=== PATIENT | female | born 1960 | race Caucasian/White ===

== ENCOUNTER → 2022-03-27 | Day surgery (SDC) | payer MEDICARE ==
[~2022-03-27] VITALS: Ht 154.9 cm; Wt 98.9 kg
[~2022-03-27] MED LIST: ABILIFY15 MG PO; AMLODIPINE-BEN1 EAC2 PO; ASPIRIN ADULT L81 M1 PO; BUPROPION XL300 MG PO; CARAFATE1 G1 PO; GLIPIZIDE5 MG PO; LASIX20 MG PO; LEVOTHYROXINE100 MC2 PO; METFORMIN HYD1000 MG PO; MIRTAZAPINE30 M1 PO; PREVACID15 MG PO; PROVENTIL HFA6.7 GM INH; SIMVASTATIN20 MG PO; XANAX0.25 MG PO
[2022-03-27 06:54] VITALS: BP 138/84
[2022-03-27 08:01] VITALS: BP 165/104
[2022-03-27 08:16] VITALS: BP 174/112
[2022-03-27 08:31] VITALS: BP 168/87
== END | disposition home or self-care (01) ==
LOC: SDC 03-24 08:45
PROVIDERS: ATTEND Surgery
DX: Z12.11 Encounter for screening for malignant neoplasm of colon (principal); K63.5 Polyp of colon; K21.9 Gastro-esophageal reflux disease without esophagitis; K29.70 Gastritis, unspecified, without bleeding; Z86.010 Personal history of colon polyps; I10 Essential (primary) hypertension; E11.9 Type 2 diabetes mellitus without complications; F31.9 Bipolar disorder, unspecified; J44.9 Chronic obstructive pulmonary disease, unspecified; F17.210 Nicotine dependence, cigarettes, uncomplicated; Z88.0 Allergy status to penicillin; Z88.8 Allergy status to other drugs, medicaments and biological substances; Z79.899 Other long term (current) drug therapy

== ENCOUNTER → 2024-03-09 | Outpatient (CLI) | payer BC, OTHER ==
[~2024-03-09] MED LIST changes: +LASIX40 MG PO; +LEVOTHYROXINE100 MC1 PO; +OXYBUTYNIN5 MG PO; +TRELEGY ELLIPT1 EACH INH
== END | disposition home or self-care (01) ==
LOC: US 13:52
PROVIDERS: ATTEND Family Medicine
DX: N18.9 Chronic kidney disease, unspecified (principal)

== ENCOUNTER → 2024-04-12 | Outpatient (CLI) | payer BC, OTHER ==
[2024-04-12 15:33] LABS: BILIRUBIN Negative (Negative); BLOOD Trace-Intact (Negative); CLARITY Cloudy (Clear); COLOR Yellow (Yellow); GLUCOSE 3+ (Negative); KETONE Negative (Negative); LEUKO ESTERASE 3+ (Negative); NITRITE Negative (Negative); PH 5.5 (4.5-8.0); SPECIFIC GRAVITY 1.015 (1.001-1.030); UROBILINOGEN 0.2 E.U./dl (0.0-1.0)
[2024-04-12 15:58] LABS: WBC TNTC wbc/hpf (0-5)
== END | disposition home or self-care (01) ==
LOC: LAB 15:08
PROVIDERS: Internal Medicine Nephrology; ATTEND Nurse Practitioner Family
DX: N30.00 Acute cystitis without hematuria (principal); D50.9 Iron deficiency anemia, unspecified

== ENCOUNTER → 2024-08-08 | Outpatient (CLI) | payer BC, MEDICARE | END | disposition home or self-care (01) | LOC: CT 13:00 | PROVIDERS: ATTEND Family Medicine | DX: Z12.31 Encounter for screening mammogram for malignant neoplasm of breast (principal); Z12.2 Encounter for screening for malignant neoplasm of respiratory organs; R91.8 Other nonspecific abnormal finding of lung field; Z87.891 Personal history of nicotine dependence ==

== ENCOUNTER → 2024-09-19 | Outpatient (CLI) | payer OTHER ==
[~2024-09-19] MED LIST changes: +IOHEXOL 300 MG/ML 100 ML VIAL IV ONE; +IOHEXOL 300 MG/ML 100 ML VIAL ONE
== END | disposition home or self-care (01) ==
LOC: CT 03:41
PROVIDERS: ATTEND Nurse Practitioner Family
DX: R10.9 Unspecified abdominal pain (principal); R63.4 Abnormal weight loss; I70.8 Atherosclerosis of other arteries

== ENCOUNTER → 2024-11-15 | Outpatient (CLI) | payer BC, OTHER ==
[~2024-11-15] MED LIST changes: -IOHEXOL 300 MG/ML 100 ML VIAL IV ONE; -IOHEXOL 300 MG/ML 100 ML VIAL ONE
[2024-11-16 13:07] LABS: t-TRANSGLUTAMINASE (tTG) IGA <2 U/mL (0-3)
== END | disposition home or self-care (01) ==
LOC: LAB 11:23
PROVIDERS: Student in an Organized Health Care Education/Training Program; ATTEND Family Medicine
DX: K90.9 Intestinal malabsorption, unspecified (principal)

== ENCOUNTER → 2025-01-20 | Outpatient (CLI) | payer BC, OTHER | END | disposition home or self-care (01) | LOC: RAD 01:30 | PROVIDERS: ATTEND Family Medicine | DX: Z13.820 Encounter for screening for osteoporosis (principal); M85.89 Other specified disorders of bone density and structure, multiple sites; Z78.0 Asymptomatic menopausal state ==

== ENCOUNTER 2025-03-01 20:47 | Emergency (ER) | payer BC, OTHER ==
[~2025-03-01] VITALS: Ht 154.9 cm; Wt 83.9 kg
[2025-03-01] MEDS ORDERED: PREDNISONE20 M1 PO (21:49)
== END 2025-03-01 22:38 | disposition home or self-care (01) ==
LOC: ED 20:47
DX: S66.911A Strain of unspecified muscle, fascia and tendon at wrist and hand level, right hand, initial encounter (principal); I10 Essential (primary) hypertension; E11.9 Type 2 diabetes mellitus without complications; J44.9 Chronic obstructive pulmonary disease, unspecified; K21.9 Gastro-esophageal reflux disease without esophagitis; F31.9 Bipolar disorder, unspecified; F12.90 Cannabis use, unspecified, uncomplicated; F17.200 Nicotine dependence, unspecified, uncomplicated; Z79.82 Long term (current) use of aspirin; Z79.899 Other long term (current) drug therapy; Z88.8 Allergy status to other drugs, medicaments and biological substances; Z90.89 Acquired absence of other organs; Z98.51 Tubal ligation status; Z98.890 Other specified postprocedural states; X58.XXXA Exposure to other specified factors, initial encounter; Y93.89 Activity, other specified; Y92.89 Other specified places as the place of occurrence of the external cause; Y99.8 Other external cause status

== ENCOUNTER 2025-03-25 17:43 | Emergency (ER) | payer BC, OTHER ==
[~2025-03-25] VITALS: Ht 154.9 cm; Wt 82.1 kg
[~2025-03-25 17:43] MED LIST changes: +PREDNISONE20 M1 PO
[2025-03-25 19:18] LABS: BILIRUBIN Negative (Negative); BLOOD Negative (Negative); CLARITY Clear (Clear); COLOR Yellow (Yellow); KETONE Negative (Negative); LEUKO ESTERASE 1+ (Negative); NITRITE Positive (Negative); PH 5.5 (4.5-8.0); SPECIFIC GRAVITY 1.010 (1.001-1.030); UROBILINOGEN 0.2 E.U./dl (0.0-1.0)
[2025-03-25 19:28] LABS: BACTERIA 3+; WBC 16-20 wbc/hpf (0-5)
[2025-03-25] MEDS ORDERED: MACROBID100 M1 PO (19:34)
[2025-03-25] MEDS ORDERED: Nitrofurantoin Monohydrate/N 100 MG CAP PO ONE (19:35)
== END 2025-03-25 19:40 | disposition home or self-care (01) ==
LOC: ED 17:43
PROVIDERS: Nurse Practitioner Family
DX: N39.0 Urinary tract infection, site not specified (principal); E11.9 Type 2 diabetes mellitus without complications; F17.200 Nicotine dependence, unspecified, uncomplicated; Z88.1 Allergy status to other antibiotic agents; Z88.8 Allergy status to other drugs, medicaments and biological substances; Z79.899 Other long term (current) drug therapy; Z79.82 Long term (current) use of aspirin; Z79.84 Long term (current) use of oral hypoglycemic drugs

== ENCOUNTER → 2025-04-07 | Outpatient (CLI) | payer BC, OTHER ==
[~2025-04-07] MED LIST changes: +MACROBID100 M1 PO
== END | disposition home or self-care (01) ==
LOC: RAD 14:40
PROVIDERS: ATTEND Family Medicine
DX: M16.0 Bilateral primary osteoarthritis of hip (principal)

== ENCOUNTER → 2025-05-05 | Outpatient (CLI) | payer BC, OTHER | END | disposition home or self-care (01) | LOC: US 04:28 | PROVIDERS: ATTEND Internal Medicine Nephrology | DX: Z87.440 Personal history of urinary (tract) infections (principal) ==